=== PATIENT | female | born 1950 | race Two or more races ===

== ENCOUNTER 2016-06-21 05:19 | Inpatient (IN) | payer MEDICAID ==
[2016-06-21] VITALS (13 sets, daily range): BP systolic 126–169; BP diastolic 75–92
[~2016-06-21] VITALS: Ht 162.6 cm; Wt 71.7 kg
[~2016-06-21 05:19] MED LIST: PT TO BRING LIST
[2016-06-21] MEDS ORDERED: ceFAZolin 1gm/50ml Premix 50 ML IV ONE (06:00)
[2016-06-21] MEDS ORDERED: CAPTOPRIL25 M1 PO (06:02)
[2016-06-21] MEDS ORDERED: CONCOR PO (06:02)
[2016-06-21] MEDS ORDERED: Bupivacaine 0.5% Inj 30 ml vial INJ ONE ×2 (07:11→08:50)
[2016-06-21] MEDS ORDERED: Surgicel 4in x 8in TOPIC ONE ×2 (07:11→08:30)
[2016-06-21] MEDS ORDERED: NS Irrig 1000ml ONE ×2 (07:45)
[2016-06-21] MEDS ORDERED: LR 1000ml ONE (07:45)
[2016-06-21] MEDS ORDERED: Succinylcholine 20mg/ml 10ml vial ONE (07:45)
[2016-06-21] MEDS ORDERED: Neostigmine 1mg/ml 10ml Inj ONE (07:45)
[2016-06-21] MEDS ORDERED: Glycopyrrolate 0.2mg/ml 1ml Vial ONE (07:45)
[2016-06-21] MEDS ORDERED: Sterile Water Irrig 1000ml IRRIG ONE (07:45)
[2016-06-21] MEDS ORDERED: Midazolam 2mg/2ml Inj ONE (07:45)
[2016-06-21] MEDS ORDERED: Propofol 10mg/ml 20ml IV ONE (07:45)
[2016-06-21] MEDS ORDERED: fentaNYL 250mcg/5ml ONE (07:45)
[2016-06-21] MEDS ORDERED: Ketorolac 30mg Inj ONE (07:45)
--- NOTE | 2016-06-21 07:45 | Anethesia Preoperative Eval ---
Anesthesia Pre-op PMH/ROS General Date of Evaluation: Jun 21, 2016 Time of Evaluation: 07:41 Anesthesiologist: Alexis ASA Score: ASA 2 Mallampati Score Class I : Soft palate, uvula, fauces, pillars visible Class II: Soft palate, uvula, fauces visible Class III: Soft palate, base of uvula visible Class IV: Only hard plate visible Mallampati Classification: Class II Surgeon: Nehal Diagnosis: L kidney hydronephrosis Surgical Procedure: L laparoscopic nephrectomy Anesthesia History: none Family History: no anesthesia problems Allergies: Coded Allergies: No Known Allergies (Unverified , 06/20/16) Medications: see eMAR Past Medical History Cardiovascular: Reports: HTN - mild, Denies: CAD, FL, arrhythmia, other, valve dz Pulmonary: Denies: COPD, MAYELA, asthma, other Gastrointestinal/Genitourinary: Reports: GERD, Denies: CRI, ESRD, other Neurologic/Psychiatric: Reports: depression/anxiety, Denies: CVA, TIA, dementia, other Endocrine: Reports: DM - borderline, Denies: hypothyroidism, other, steroids HEENT: Denies: KETCHIKAN (L), KETCHIKAN (R), cataract (L), cataract (R), glaucoma, other Hematology/Immune: Denies: DVT, anemia, bleeding disorder, other Musculoskeletal/Integumentary: Denies: DDD, DJD, OA, RA, edema, other PMH Narrative: as above Anesthesia Pre-op Phys. Exam Physician Exam Last Vital Signs Date Time Temp Pulse Resp B/P Pulse Ox O2 Delivery O2 Flow Rate FiO2 06/21/16 06:06 97.9 71 20 140/84 95 Room Air Constitutional: NAD Neurologic: CN 2-12 intact Cardiovascular: RRR, no M/R/G Respiratory: CTA Gastrointestinal: S/NT/ND Airway Exam Mallampati Score: Class II MO: full Neck: flexible ROM: full Teeth: missing Dentures: no lower, no upper Anesthesia Pre-op A/P Labs see chart Studies Pre-op Studies: EKG - NSR Risk Assessment & Plan Assessment: ASA 2 Plan: GA with ETT Status Change Before Surgery: No Pre-Antibiotics Drug: Ancef 1gr. Given Within 1 Hr of Incision: Yes Time Given: 07:58 TANNER PARADA M.D. Jun 21, 2016 07:45
--- NOTE | 2016-06-21 07:53 | Pre-Procedure Note/Attestation ---
Pre-Procedure Note/Attestation Complete Prior to Procedure Planned Procedure: left Procedure Narrative: Left Laparoscopic Nephrectomy Attestation I attest that I discussed the nature of the procedure; its benefits; risks and complications; and alternatives (and the risks and benefits of such alternatives ), prior to the procedure, with the patient (or the patient's legal advertising account representative). I attest that, if there was a reasonable possibility of needing a blood transfusion, the patient (or the patient's legal advertising account representative) was given the [facility] standardized written summary, pursuant to the Ray[place] Blood Safety Act ([place] Health and Safety Code # 1645, as amended). I attest that I re-evaluated the patient just prior to the surgery and that there has been no change in the patient's H&P, except as documented below: Jb Calvert MD Jun 21, 2016 07:53
[2016-06-21] MEDS ORDERED: NS Irrig 1000ml IRRIG ONE (08:22)
[2016-06-21] MEDS ORDERED: LR 1000ml 1,000 ML IVLG SCH (08:45)
[2016-06-21] MEDS ORDERED: Meperidine 25mg/ml Inj IV PRN (08:45)
[2016-06-21] MEDS ORDERED: fentaNYL 100 mcg/2 mL IV PRN (08:45)
[2016-06-21] MEDS ORDERED: DiphenhydrAMINE 50mg/ml Inj IVP PRN (08:45)
[2016-06-21] MEDS ORDERED: Midazolam 2mg/2ml Inj IVP PRN (08:45)
[2016-06-21] MEDS ORDERED: Hydromorphone 0.5mg/0.5ml inj IVP PRN (08:45)
[2016-06-21] MEDS ORDERED: Metoclopramide 10mg/2ml Inj IVP PRN (08:45)
--- NOTE | 2016-06-21 09:04 | Brief Operative Note ---
Immediate Post Operative Note Operative Note Procedure: Left radical nephroureterectomy Post-op Diagnosis: same Surgeon: Juan Calvert Anesthesia: general Specimen: yes Complications: none Condition: stable Estimated Blood Loss: minimal Drains: none Implant(s) used?: No Jb Calvert MD Jun 21, 2016 09:04
--- NOTE | 2016-06-21 11:03 | Immediate Post-Op Evaluation ---
Immediate Post-Op Evalulation Immediate Post-Op Evalulation Procedure: L laparoscopic nephrectomy Date of Evaluation: Jun 21, 2016 Time of Evaluation: 09:25 IV Fluids: 1200 Blood Products: none Estimated Blood Loss: 100 Urinary Output: 150 Blood Pressure Systolic: 146 Blood Pressure Diastolic: 54 Pulse Rate: 72 Respiratory Rate: 20 O2 Sat by Pulse Oximetry: 99 Temperature (Fahrenheit): 97.6 Pain Score (1-10): 2 Nausea: No Vomiting: No Complications none Patient Status: reacts, patent, extubated, none Hydration Status: adequate TANNER PARADA M.D. Jun 21, 2016 11:03
[2016-06-21 11:41] LABS: BASOPHILS % (AUTO) 0.6 % (0.0-2.0); EOSINOPHILS % (AUTO) 0.2 % (0.0-3.0); LYMPHOCYTES % (AUTO) 8.8 % (20.0-45.0); MEAN CORPUSCULAR HEMOGLOBIN 28.1 PG (27.0-31.0); MEAN CORPUSCULAR VOLUME 85 FL (80-99); MEAN PLATELET VOLUME 7.1 FL (6.5-10.1); MONOCYTES % (AUTO) 5.9 % (1.0-10.0); NEUTROPHILS % (AUTO) 84.4 % (45.0-75.0); PLATELET COUNT 191 K/UL (150-450); RED BLOOD COUNT 4.49 M/UL (4.20-5.40); RED CELL DISTRIBUTION WIDTH 12.8 % (11.6-14.8); WHITE BLOOD COUNT 11.7 K/UL (4.8-10.8)
[2016-06-21 12:01] LABS: ANION GAP 15 (5-15); CALCIUM 9.6 mg/dL (8.6-10.2); CARBON DIOXIDE 25 mEQ/L (20-30); CHLORIDE 99 mEQ/L (98-107); CREATININE 0.8 mg/dL (0.5-0.9); GLOMERULAR FILTRATION RATE > 60 mL/min (>60); HEMOLYSIS 7; POTASSIUM 4.2 mEQ/L (3.4-4.9); SODIUM 139 mEQ/L (135-145)
[2016-06-21] MEDS: D5 1/2NS w/KCl 20mEq 1,000 ML IV SCH ×2 (12:42→22:31)
[2016-06-21] MEDS: HYDROmorphone 1mg/ml Carpuject IVP PRN (13:47)
[2016-06-21] MEDS: ceFAZolin sod 1 GM in D5W 55 ML IV SCH (17:03)
[2016-06-21] MEDS: Docusate 100mg tablet ORAL SCH (17:03)
[2016-06-22] VITALS: BP 138/89
[2016-06-22] MEDS: ceFAZolin sod 1 GM in D5W 55 ML IV SCH (00:31)
[2016-06-22] MEDS: HYDROmorphone 1mg/ml Carpuject IVP PRN ×2 (03:56→09:34)
[2016-06-22 04:00] VITALS: BP 135/77
[2016-06-22 07:25] LABS: BASOPHILS % (AUTO) 0.4 % (0.0-2.0); EOSINOPHILS % (AUTO) 0.9 % (0.0-3.0); LYMPHOCYTES % (AUTO) 13.6 % (20.0-45.0); MEAN CORPUSCULAR HEMOGLOBIN 28.7 PG (27.0-31.0); MEAN CORPUSCULAR HGB CONC 33.5 G/DL (32.0-36.0); MEAN CORPUSCULAR VOLUME 86 FL (80-99); MEAN PLATELET VOLUME 7.3 FL (6.5-10.1); MONOCYTES % (AUTO) 7.4 % (1.0-10.0); NEUTROPHILS % (AUTO) 77.7 % (45.0-75.0); PLATELET COUNT 175 K/UL (150-450); RED BLOOD COUNT 4.12 M/UL (4.20-5.40); WHITE BLOOD COUNT 7.5 K/UL (4.8-10.8)
[2016-06-22 07:51] LABS: ANION GAP 11 (5-15); CALCIUM 9.1 mg/dL (8.6-10.2); CARBON DIOXIDE 27 mEQ/L (20-30); CHLORIDE 98 mEQ/L (98-107); CREATININE 0.8 mg/dL (0.5-0.9); GLOMERULAR FILTRATION RATE > 60 mL/min (>60); HEMOLYSIS 4; POTASSIUM 4.5 mEQ/L (3.4-4.9); SODIUM 136 mEQ/L (135-145)
[2016-06-22 08:22] VITALS: BP 138/81
[2016-06-22] MEDS: Docusate 100mg tablet ORAL SCH ×2 (09:00→17:16)
--- NOTE | 2016-06-22 11:59 | 48 Hour Post Anesthesia Eval ---
Post Anesthesia Evaluation Procedure: L laparoscopic nephrectomy Date of Evaluation: Jun 22, 2016 Time of Evaluation: 11:57 Blood Pressure Systolic: 134 0: 72 Pulse Rate: 68 Respiratory Rate: 20 Temperature (Fahrenheit): 97.4 O2 Sat by Pulse Oximetry: 99 Airway: patent Nausea: No Vomiting: No Pain Intensity: 3 Hydration Status: adequate Cardiopulmonary Status: stable Mental Status/LOC: patient returned to baseline Follow-up Care/Observations: n/a Post-Anesthesia Complications: none Follow-up care needed: N/A TANNER PARADA M.D. Jun 22, 2016 11:59
[2016-06-22] MEDS: D5 1/2NS w/KCl 20mEq 1,000 ML IV SCH ×3 (12:06→22:42)
[2016-06-22] MEDS ORDERED: HYDROmorphone 1mg/ml Carpuject IVP PRN ×2 (12:18→16:00)
[2016-06-22] MEDS ORDERED: Ketorolac 30mg Inj IV PRN (12:30)
[2016-06-22 12:37] VITALS: BP 138/83
--- NOTE | 2016-06-22 14:09 | Internal Med Progress Note ---
Subjective Physician Name Mahesh Madison Attending Physician Jb Calvert MD Current Medications Medications (Trade) Dose Ordered Sig/Nikko Route PRN Reason Start Time Stop Time Status Last Admin Dose Admin Acetaminophen (Tylenol) 650 mg Q4H PRN ORAL FEVER 06/21/16 09:15 07/21/16 09:14 Dextrose/ Electrolytes (D5 0.45%NS W/ KCl 20mEq) 1,000 ml @ 100 mls/hr Q10H IV 06/21/16 12:30 07/21/16 12:29 06/22/16 12:06 Docusate Sodium (Colace) 100 mg TWICE A DAY ORAL 06/21/16 18:00 07/21/16 17:59 06/21/16 17:03 Hydromorphone HCl (Dilaudid) 1 mg Q3H PRN IVP pain score 4-6 06/22/16 12:18 06/28/16 09:14 Ketorolac Tromethamine (Toradol 30mg) 30 mg Q6H PRN IV Moderate Pain (Pain Scale 4-6) 06/22/16 12:30 06/27/16 12:29 Ondansetron HCl (Zofran) 4 mg Q6H PRN IVP Nausea & Vomiting 06/21/16 09:15 07/21/16 09:14 06/22/16 09:36 Temazepam (Restoril) 7.5 mg DAILYPRN PRN ORAL Insomnia 06/21/16 09:15 06/28/16 09:14 06/22/16 01:15 Allergies: Coded Allergies: No Known Allergies (Unverified , 06/20/16) Subjective awake, alert, responsive, c/o a lot of pain. Objective Last Vital Signs Date Time Temp Pulse Resp B/P Pulse Ox O2 Delivery O2 Flow Rate FiO2 06/22/16 12:37 97.9 77 18 138/83 99 Room Air 06/22/16 00:00 2.0 General Appearance: WD/WN, no apparent distress, alert EENT: PERRL/EOMI, normal ENT inspection, TMs normal Neck: non-tender, normal alignment, supple Cardiovascular: normal peripheral pulses, normal rate, regular rhythm, no gallop/murmur Respiratory/Chest: chest wall non-tender, lungs clear, normal breath sounds, no respiratory distress Abdomen: normal bowel sounds, soft, tender, other - surgical incision intact, hypoactive BS. Genitourinary/Rectal: normal genital exam Edema: non-pitting Neurologic: javascript engineer II-XII grossly normal, no motor/sensory deficits, alert, oriented x 3 Skin: normal pigmentation, warm/dry Laboratory Tests Test 06/22/16 05:35 White Blood Count 7.5 K/UL (4.8-10.8) Red Blood Count 4.12 M/UL (4.20-5.40) L Hemoglobin 11.8 G/DL (12.0-16.0) L Hematocrit 35.3 % (37.0-47.0) L Mean Corpuscular Volume 86 FL (80-99) Mean Corpuscular Hemoglobin 28.7 PG (27.0-31.0) Mean Corpuscular Hemoglobin Concent 33.5 G/DL (32.0-36.0) Red Cell Distribution Width 13.0 % (11.6-14.8) Platelet Count 175 K/UL (150-450) Mean Platelet Volume 7.3 FL (6.5-10.1) Neutrophils (%) (Auto) 77.7 % (45.0-75.0) H Lymphocytes (%) (Auto) 13.6 % (20.0-45.0) L Monocytes (%) (Auto) 7.4 % (1.0-10.0) Eosinophils (%) (Auto) 0.9 % (0.0-3.0) Basophils (%) (Auto) 0.4 % (0.0-2.0) Sodium Level 136 mEQ/L (135-145) Potassium Level 4.5 mEQ/L (3.4-4.9) Chloride Level 98 mEQ/L (98-107) Carbon Dioxide Level 27 mEQ/L (20-30) Anion Gap 11 (5-15) Blood Urea Nitrogen 11 mg/dL (7-23) Creatinine 0.8 mg/dL (0.5-0.9) Estimat Glomerular Filtration Rate > 60 mL/min (>60) Glucose Level 166 mg/dL (74-106) H Calcium Level 9.1 mg/dL (8.6-10.2) Intake and Output 06/21/16 06/22/16 19:00 07:00 Intake Total 1800 ml 1150 ml Output Total 300 ml 650 ml Balance 1500 ml 500 ml Intake Oral 240 ml IV Total 1800 ml 910 ml Output Urine Total 200 ml 650 ml Estimated Blood Loss 100 ml # Voids 100 Assessment/Plan Assessment/Plan Left renal hydronephrosis s/p left Laparoscopic nephroureterectomy Hypertension depression Plan: Pain medication ambulation liquid diet discuss with family member at bedside Mahesh Madison MD Jun 22, 2016 14:09
[2016-06-22 16:00] VITALS: BP 151/97
[2016-06-22] MEDS ORDERED: Ketorolac 30mg Inj IV SCH (18:30)
[2016-06-22] MEDS: Captopril 25mg tab ORAL SCH (18:57)
[2016-06-22 20:00] VITALS: BP 137/84
[2016-06-22] MEDS: Ketorolac 30mg Inj IV SCH (22:35)
[2016-06-23] VITALS: BP 141/80
[2016-06-23 04:00] VITALS: BP 144/88
[2016-06-23] MEDS: D5 1/2NS w/KCl 20mEq 1,000 ML IV SCH (05:09)
[2016-06-23] MEDS: Ketorolac 30mg Inj IV SCH ×4 (05:10→23:00)
[2016-06-23 08:00] VITALS: BP 141/93
[2016-06-23] MEDS: Docusate 100mg tablet ORAL SCH ×2 (08:47→17:39)
[2016-06-23] MEDS: Captopril 25mg tab ORAL SCH (08:47)
[2016-06-23 12:18] VITALS: BP 135/80
--- NOTE | 2016-06-23 13:19 | Internal Med Progress Note ---
Subjective Physician Name Mahesh Madison Attending Physician Jb Calvert MD Current Medications Medications (Trade) Dose Ordered Sig/Nikko Route PRN Reason Start Time Stop Time Status Last Admin Dose Admin Acetaminophen (Tylenol) 650 mg Q4H PRN ORAL FEVER 06/21/16 09:15 07/21/16 09:14 Captopril (Capoten) 25 mg DAILY ORAL 06/22/16 19:30 07/22/16 19:29 06/23/16 08:47 Docusate Sodium (Colace) 100 mg TWICE A DAY ORAL 06/21/16 18:00 07/21/16 17:59 06/23/16 08:47 Hydromorphone HCl (Dilaudid) 1 mg Q3H PRN IVP Severe Breakthru Pain (>7) 06/22/16 16:00 06/29/16 15:59 Ketorolac Tromethamine (Toradol 30mg) 30 mg Q6H IV 06/22/16 23:00 06/27/16 22:59 06/23/16 11:07 Ondansetron HCl (Zofran) 4 mg Q6H PRN IVP Nausea & Vomiting 06/21/16 09:15 07/21/16 09:14 06/22/16 16:25 Temazepam (Restoril) 7.5 mg DAILYPRN PRN ORAL Insomnia 06/21/16 09:15 06/28/16 09:14 06/22/16 01:15 Allergies: Coded Allergies: No Known Allergies (Unverified , 06/20/16) Subjective awake, alert, responsive, c/o less abdominal pain. + BM. Ambulation Objective Last Vital Signs Date Time Temp Pulse Resp B/P Pulse Ox O2 Delivery O2 Flow Rate FiO2 06/23/16 12:18 98.1 73 20 135/80 94 Room Air 06/22/16 00:00 2.0 Microbiology Date/Time Source Procedure Growth Status 06/21/16 06:25 Nasal Nares MRSA Culture - Final NO METHICILLIN RESISTANT STAPH AUREUS... Complete Intake and Output 06/22/16 06/23/16 19:00 07:00 Intake Total 820 ml 1040 ml Output Total 675 ml 1325 ml Balance 145 ml -285 ml Intake Oral 120 ml 240 ml IV Total 700 ml 800 ml Output Urine Total 675 ml 1325 ml # Voids 1 2 Objective General Appearance: WD/WN, no apparent distress, alert EENT: PERRL/EOMI, normal ENT inspection, TMs normal Neck: non-tender, normal alignment, supple Cardiovascular: normal peripheral pulses, normal rate, regular rhythm, no murmur Respiratory/Chest: chest wall non-tender, lungs clear, normal breath sounds, no respiratory distress Abdomen: normal bowel sounds, soft, less tender, surgical incision intact, + BS. 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 Mahesh Madison MD Jun 23, 2016 13:19
[2016-06-23 16:00] VITALS: BP 156/93
[2016-06-23 20:00] VITALS: BP 138/93
[2016-06-24] VITALS: BP 150/93
[2016-06-24 04:00] VITALS: BP 155/94
[2016-06-24] MEDS: Ketorolac 30mg Inj IV SCH ×4 (05:00→22:06)
[2016-06-24 08:00] VITALS: BP 133/84
[2016-06-24] MEDS: Captopril 25mg tab ORAL SCH (08:25)
[2016-06-24] MEDS: Docusate 100mg tablet ORAL SCH ×2 (08:25→17:23)
[2016-06-24 12:00] VITALS: BP 127/84
[2016-06-24 16:00] VITALS: BP 139/94
--- NOTE | 2016-06-24 18:12 | Internal Med Progress Note ---
Subjective Date of Service: Jun 24, 2016 Physician Name ReaEliazar taylor Attending Physician Jb Calvert MD Current Medications Medications (Trade) Dose Ordered Sig/Nikko Route PRN Reason Start Time Stop Time Status Last Admin Dose Admin Acetaminophen (Tylenol) 650 mg Q4H PRN ORAL FEVER 06/21/16 09:15 07/21/16 09:14 Captopril (Capoten) 25 mg DAILY ORAL 06/22/16 19:30 07/22/16 19:29 06/24/16 08:25 Docusate Sodium (Colace) 100 mg TWICE A DAY ORAL 06/21/16 18:00 07/21/16 17:59 06/24/16 08:25 Hydromorphone HCl (Dilaudid) 1 mg Q3H PRN IVP Severe Breakthru Pain (>7) 06/22/16 16:00 06/29/16 15:59 Ketorolac Tromethamine (Toradol 30mg) 30 mg Q6H IV 06/22/16 23:00 06/27/16 22:59 06/24/16 17:16 Ondansetron HCl (Zofran) 4 mg Q6H PRN IVP Nausea & Vomiting 06/21/16 09:15 07/21/16 09:14 06/24/16 17:20 Temazepam (Restoril) 7.5 mg DAILYPRN PRN ORAL Insomnia 06/21/16 09:15 06/28/16 09:14 06/23/16 23:41 Allergies: Coded Allergies: No Known Allergies (Unverified , 06/20/16) ROS Limited/Unobtainable: No Constitutional: Reports: no symptoms HEENT: Reports: no symptoms Cardiovascular: Reports: no symptoms Respiratory: Reports: no symptoms Gastrointestinal/Abdominal: Reports: no symptoms Genitourinary: Reports: flank pain Neurologic/Psychiatric: Reports: no symptoms Subjective 66 YO F admitted with left hydronephrosis; S/P left radical nephroureterectomy on 06/21/16. Cover for Int Sergio-Dr Madison Objective Last Vital Signs Date Time Temp Pulse Resp B/P Pulse Ox O2 Delivery O2 Flow Rate FiO2 06/24/16 16:00 98.4 79 20 139/94 99 Room Air 06/22/16 00:00 2.0 Intake and Output 06/23/16 06/24/16 19:00 07:00 Intake Total 820 ml 240 ml Balance 820 ml 240 ml Intake Oral 720 ml 240 ml IV Total 100 ml # Voids 4 # Bowel Movements 1 Objective Objective General Appearance: WD/WN, no apparent distress, alert EENT: PERRL/EOMI, normal ENT inspection, TMs normal Neck: non-tender, normal alignment, supple Cardiovascular: normal peripheral pulses, normal rate, regular rhythm, no murmur Respiratory/Chest: chest wall non-tender, lungs clear, normal breath sounds, no respiratory distress Abdomen: normal bowel sounds, soft, less tender, surgical incision intact, + BS. 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 ELIAZAR REA Jun 24, 2016 18:12
[2016-06-24 20:00] VITALS: BP 144/93
[2016-06-25] VITALS: BP 130/84
[2016-06-25 04:00] VITALS: BP 132/81
[2016-06-25] MEDS: Ketorolac 30mg Inj IV SCH ×4 (05:00→23:00)
[2016-06-25 08:00] VITALS: BP 148/86
[2016-06-25 08:02] LABS: BASOPHILS % (AUTO) 0.6 % (0.0-2.0); EOSINOPHILS % (AUTO) 4.2 % (0.0-3.0); LYMPHOCYTES % (AUTO) 22.6 % (20.0-45.0); MEAN CORPUSCULAR HEMOGLOBIN 28.3 PG (27.0-31.0); MEAN CORPUSCULAR HGB CONC 33.3 G/DL (32.0-36.0); MEAN CORPUSCULAR VOLUME 85 FL (80-99); MONOCYTES % (AUTO) 8.3 % (1.0-10.0); NEUTROPHILS % (AUTO) 64.3 % (45.0-75.0); PLATELET COUNT 206 K/UL (150-450); RED BLOOD COUNT 4.14 M/UL (4.20-5.40); RED CELL DISTRIBUTION WIDTH 12.8 % (11.6-14.8)
[2016-06-25 08:13] LABS: CALCIUM 9.7 mg/dL (8.6-10.2); GLOMERULAR FILTRATION RATE 55.1 mL/min (>60); POTASSIUM 4.4 mEQ/L (3.4-4.9)
[2016-06-25] MEDS: Docusate 100mg tablet ORAL SCH ×2 (09:18→17:27)
[2016-06-25] MEDS: Captopril 25mg tab ORAL SCH (09:19)
[2016-06-25 12:00] VITALS: BP 139/78
[2016-06-25 16:14] VITALS: BP 148/81
--- NOTE | 2016-06-25 17:55 | Internal Med Progress Note ---
Subjective Date of Service: Jun 25, 2016 Physician Name ReaEliazar Attending Physician Jb Calvert MD Current Medications Medications (Trade) Dose Ordered Sig/Nikko Route PRN Reason Start Time Stop Time Status Last Admin Dose Admin Acetaminophen (Tylenol) 650 mg Q4H PRN ORAL FEVER 06/21/16 09:15 07/21/16 09:14 Captopril (Capoten) 25 mg DAILY ORAL 06/22/16 19:30 07/22/16 19:29 06/25/16 09:19 Docusate Sodium (Colace) 100 mg TWICE A DAY ORAL 06/21/16 18:00 07/21/16 17:59 06/25/16 17:27 Hydromorphone HCl (Dilaudid) 1 mg Q3H PRN IVP Severe Breakthru Pain (>7) 06/22/16 16:00 06/29/16 15:59 Ketorolac Tromethamine (Toradol 30mg) 30 mg Q6H IV 06/22/16 23:00 06/27/16 22:59 06/25/16 17:25 Ondansetron HCl (Zofran) 4 mg Q6H PRN IVP Nausea & Vomiting 06/21/16 09:15 07/21/16 09:14 06/24/16 17:20 Temazepam (Restoril) 7.5 mg DAILYPRN PRN ORAL Insomnia 06/21/16 09:15 06/28/16 09:14 06/23/16 23:41 Allergies: Coded Allergies: No Known Allergies (Unverified , 06/20/16) ROS Limited/Unobtainable: No Constitutional: Reports: no symptoms HEENT: Reports: no symptoms Cardiovascular: Reports: no symptoms Respiratory: Reports: no symptoms Gastrointestinal/Abdominal: Reports: abdominal pain Genitourinary: Reports: no symptoms Neurologic/Psychiatric: Reports: no symptoms Subjective 66 YO F admitted with left hydronephrosis; S/P left radical nephroureterectomy on 06/21/16. Cover for Int Sergio-Dr Madison Objective Last Vital Signs Date Time Temp Pulse Resp B/P Pulse Ox O2 Delivery O2 Flow Rate FiO2 06/25/16 16:14 97.9 77 18 148/81 97 Room Air 06/22/16 00:00 2.0 Laboratory Tests Test 06/25/16 06:20 White Blood Count 6.0 K/UL (4.8-10.8) Red Blood Count 4.14 M/UL (4.20-5.40) L Hemoglobin 11.7 G/DL (12.0-16.0) L Hematocrit 35.2 % (37.0-47.0) L Mean Corpuscular Volume 85 FL (80-99) Mean Corpuscular Hemoglobin 28.3 PG (27.0-31.0) Mean Corpuscular Hemoglobin Concent 33.3 G/DL (32.0-36.0) Red Cell Distribution Width 12.8 % (11.6-14.8) Platelet Count 206 K/UL (150-450) Mean Platelet Volume 7.0 FL (6.5-10.1) Neutrophils (%) (Auto) 64.3 % (45.0-75.0) Lymphocytes (%) (Auto) 22.6 % (20.0-45.0) Monocytes (%) (Auto) 8.3 % (1.0-10.0) Eosinophils (%) (Auto) 4.2 % (0.0-3.0) H Basophils (%) (Auto) 0.6 % (0.0-2.0) Sodium Level 140 mEQ/L (135-145) Potassium Level 4.4 mEQ/L (3.4-4.9) Chloride Level 102 mEQ/L (98-107) Carbon Dioxide Level 25 mEQ/L (20-30) Anion Gap 13 (5-15) Blood Urea Nitrogen 19 mg/dL (7-23) Creatinine 1.0 mg/dL (0.5-0.9) H Estimat Glomerular Filtration Rate 55.1 mL/min (>60) Glucose Level 130 mg/dL (74-106) H Calcium Level 9.7 mg/dL (8.6-10.2) Intake and Output 06/24/16 06/25/16 19:00 07:00 Intake Total 550 ml 240 ml Balance 550 ml 240 ml Intake Oral 550 ml 240 ml # Voids 3 6 # Bowel Movements 1 Objective Objective General Appearance: WD/WN, no apparent distress, alert EENT: PERRL/EOMI, normal ENT inspection, TMs normal Neck: non-tender, normal alignment, supple Cardiovascular: normal peripheral pulses, normal rate, regular rhythm, no murmur Respiratory/Chest: chest wall non-tender, lungs clear, normal breath sounds, no respiratory distress Abdomen: normal bowel sounds, soft, less tender, surgical incision intact, + BS. 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 ELIAZAR REA Jun 25, 2016 17:55
[2016-06-25 20:00] VITALS: BP 139/79
[2016-06-26] VITALS: BP 133/80
[2016-06-26] MEDS: Ketorolac 30mg Inj IV SCH ×2 (05:37→11:00)
[2016-06-26 06:25] LABS: BASOPHILS % (AUTO) 0.8 % (0.0-2.0); LYMPHOCYTES % (AUTO) 25.6 % (20.0-45.0); MEAN CORPUSCULAR HEMOGLOBIN 28.3 PG (27.0-31.0); MEAN CORPUSCULAR HGB CONC 33.1 G/DL (32.0-36.0); MEAN CORPUSCULAR VOLUME 85 FL (80-99); MEAN PLATELET VOLUME 6.5 FL (6.5-10.1); MONOCYTES % (AUTO) 8.7 % (1.0-10.0); NEUTROPHILS % (AUTO) 59.9 % (45.0-75.0); PLATELET COUNT 216 K/UL (150-450); RED BLOOD COUNT 4.19 M/UL (4.20-5.40); WHITE BLOOD COUNT 6.7 K/UL (4.8-10.8)
[2016-06-26 07:01] LABS: CALCIUM 9.8 mg/dL (8.6-10.2); GLOMERULAR FILTRATION RATE 55.1 mL/min (>60); POTASSIUM 4.5 mEQ/L (3.4-4.9)
[2016-06-26 08:00] VITALS: BP 142/88
[2016-06-26] MEDS: Captopril 25mg tab ORAL SCH (08:58)
[2016-06-26] MEDS: Docusate 100mg tablet ORAL SCH (08:58)
[2016-06-26 11:50] VITALS: BP 142/67
[2016-06-26] MEDS ORDERED: Tubing IV Secondary IV ONE (15:59)
[2016-06-26 16:00] VITALS: BP 143/88
--- NOTE | 2016-06-27 08:50 | Discharge Summary ---
Discharge Summary Hospital Course Date of Admission Jun 21, 2016 at 05:19 Date of Discharge Jun 26, 2016 at 16:00 Admitting Diagnosis left hydronephrosis Reason for Hospitalization: elective surgery HPI Noreen Guerra is a 66 year old female who was admitted on Jun 21, 2016 at 05:19 for Renal Hydronefrosis,Kidney Disoder Lt Consultations IM dr Madison Procedures s/p 06/[address]rectomy dr Calvert [facility] Course s/p surgery 06/21 course of recovery uneventful pain management Fley dc voided freely ambulated diet advanced, tolerated BP management with current regimen - stable dc to SNF DISCHARGE DIAGNOSIS Left renal hydronephrosis s/p left radical nephroureterectomy on 06/21/16 Hypertension depression Discharge Medications Continued Medications: Captopril (Captopril) 25 Mg Tablet 25 MG PO DA, TAB Discharge Condition Upon Discharge: stable Discharge Disposition Patient was discharged to SNF Discharge Diagnoses: Discharge Instructions Discharge Instructions Special Instructions I have been assigned to complete a D/C Summary on this account. I was not involved in the patient management Sumaya Weaver NP (Vanchtein) Jun 27, 2016 08:50
--- NOTE | 2016-06-28 11:08 | Operative Note - Dictated ---
DATE OF OPERATION: 06/22/2016 PREOPERATIVE DIAGNOSIS: Nonfunctioning hydronephrotic left kidney. POSTOPERATIVE DIAGNOSIS: Nonfunctioning hydronephrotic left kidney. OPERATION: Laparoscopic radical nephroureterectomy. OPERATIVE SURGEON: Jb Calvert M.D. ANESTHESIA: General. FINDINGS: Dilated nonfunctioning left kidney. INDICATIONS FOR SURGERY: The patient had chronic left pain. CT urogram showed nonfunctioning highly dilated kidney. CT scan showed nonfunctioning on the left. Treatment options were explained to her in great length including all potential complications and she signed the consent. DESCRIPTION OF OPERATION: The patient was brought to the operating room, placed in a left lateral decubital position, prepped and draped in a standard fashion. A 7 cm incision was made in the subxiphoid area. Hand port was placed as well as two additional 12 millimeter trocars. Dissection started in the left line of Toldt the left kidney. Ureter was dissected towards the bladder, clipped and severed with Hemoclips. dissection from the surrounding adhesions and . Kidney was removed and sent for pathologic examination. Estimated blood loss was approximately 20 mL. The patient tolerated the procedure well. The wound was closed in three layers. Dawn for the skin dressing. Sponge count and instrument count was correct. Jb Calvert M.D. DR: Brad JOB#: [id number] CC:
== END 2016-06-26 16:00 | DRG 443 ==
LOC: SDSOVERFLO 05:19 → 3E 10:42
PROC: 0TT14ZZ Resection of Left Kidney, Percutaneous Endoscopic Approach (ICD-10-PCS; principal; 2016-06-22)
PROC: 0TT74ZZ Resection of Left Ureter, Percutaneous Endoscopic Approach (ICD-10-PCS; 2016-06-22)
DX: N28.89 Other specified disorders of kidney and ureter (principal); I10 Essential (primary) hypertension; N13.39 Other hydronephrosis; F32.9 Major depressive disorder, single episode, unspecified
CPT/HCPCS: 36415; 80048; 82962; 85025; 86850; 86900; 86901; 87081; 94003; 94150; J2180; J2250; J2405; J2710; J2765